=== PATIENT | male | born 1935 | race Caucasian/White ===

== ENCOUNTER 2021-03-26 08:11 | Outpatient (CLI) | payer MEDICARE, OTHER, SELFPAY ==
--- NOTE | ~2021-03-26 | CT_ITS ---
EXAMINATION: CT abdomen pelvis w con EXAM DATE: 03/26/2021 08:51 INDICATION: Prostate cancer. TECHNIQUE: Spiral CT of the abdomen and pelvis was performed following intravenous injection of 100 m L Omnipaque 350. Axial, coronal and sagittal images of the abdomen and pelvis were reviewed. The do se-length product (DLP) for this examination was 1121.71 mGy-cm. The exposure was tailored according to patient size (auto mA exposure control), and iterative reconstruction (ASIR) was used as addition al dose reduction technique. There is no prior study for comparison. FINDINGS: Geographic shaped region of transient hepatic attenuation difference in the right liver dom e. Spleen, adrenal glands, pancreas are unremarkable. Gallbladder is unremarkable. No biliary obstr uction. Portal and splenic veins are patent. Kidneys enhance symmetrically. There is no hydronephr osis. There is an exophytic left renal cyst measuring 5.7 cm. There is prostatomegaly, prostate measuring 6.3 cm transverse dimension. Mild bilateral pelvic lympha denopathy, largest lymph node on the right measuring 1.2 x 1.5 cm, and on the left measuring 1.2 x 1. 9 cm (axial image 141). There is left lower retroperitoneal lymph node at the pelvic inlet which is s imilar in size (axial image 111). This could be metastatic disease. The bladder is unremarkable. There is diffuse sclerosis of the left iliac bone with hazy cortical margin, metastatic disease with mild extraosseous extension. There is mild to moderate scattered arteriosclerotic disease. Small to m oderate left inguinal hernia with descending colon bulging inside. Small umbilical and right inguinal fat-containing hernias. The appendix is normal. The stomach and small bowel are unremarkable. There is expected amount of c olonic stool. No free intraperitoneal gas. The heart is normal in size. There are no pericardial or pleural effusions. The lung bases are unremarkable. IMPRESSION: 1. Moderate prostatomegaly. 2. Left iliac, acetabular osteoblastic disease. 3. Three enlarged pelvic lymph nodes probably metastatic. 4. Inguinal and umbilical hernias. Reviewed, dictated and finalized at location B. [employer] AGENT
--- NOTE | ~2021-03-26 | NM_ITS ---
EXAMINATION: NM bone scan whole body DATE: 03/26/2021 11:24 INDICATION: Prostate cancer. TECHNIQUE: 26.5 mCi Tc-99m HDP was administered intravenously. Delayed whole-body scintigrams were o btained. COMPARISON: CT abdomen and pelvis 03/26/2021 FINDINGS: There is increased activity in the left innominate bone correlating with sclerotic lesions by CT. There are foci of joint-centered increased activity in the thoracic spine, likely osteoarthrit is. There are foci of increased activity in the lumbar spine correlating with degenerative disc disea se by CT. IMPRESSION: 1. Increased activity in the left innominate bone correlating with sclerotic lesions by CT, consisten t with metastatic disease. Reviewed, dictated and finalized at location A. E MANGER IMPRESSION: 1. Increased activity in the left innominate bone correlating with sclerotic le sions by CT, consistent with metastatic disease.
[2021-03-26 08:45] LABS: Estimated Glomerular Filt Rate > 60
== END 2021-03-26 08:12 | disposition home or self-care (01) ==
LOC: ANHIMG 08:20
PROVIDERS: PCP Internal Medicine; Visit Provider Urology
DX: C61 Malignant neoplasm of prostate (principal); K42.9 Umbilical hernia without obstruction or gangrene; K40.90 Unilateral inguinal hernia, without obstruction or gangrene, not specified as recurrent
CPT/HCPCS: 74177; 78306; A9561; Q9967